=== PATIENT | female | born 1985 | race Two or more races ===

== ENCOUNTER 2018-05-06 18:24 | Emergency (ER) | payer MEDICAID, OTHER ==
[~2018-05-06] VITALS: Ht 160 cm; Wt 63.5 kg
[~2018-05-06 18:24] MED LIST: PREN1TAB81 PO
--- NOTE | 2018-05-06 18:47 | NUR ---
DR LOPEZ AT THE BEDSIDE FOR MSE.
[2018-05-06 18:54] LABS: *BILIRUBIN,URIN NEGATIVE (NEGATIVE); *BLOOD, URINE Trace-intact (NEGATIVE); *CLARITY,URINE SLIGHTLY CLOUDY (CLEAR); *COLOR,URINE YELLOW (YELLOW); *KETONES,URINE NEGATIVE (NEGATIVE); *PROTEIN,URINE NEGATIVE (NEGATIVE); *UROBILINOGEN,URINE 0.2 E.U./dl (NORMAL); LEUKOCYTE ESTERASE ,URINE TRACE (NEGATIVE); NITRITE, URINE NEGATIVE (NEGATIVE); UGLUCOSE NEGATIVE (NEGATIVE)
[2018-05-06 18:56] LABS: *URINE HCG, QUAL NEGATIVE (NEGATIVE)
[2018-05-06 18:59] LABS: BACTERIA,URINE FEW /HPF (NONE SEEN); RBC,URINE 0-3 /HPF (0-3); SQUAMOUS EPITHELIAL CELL,UR MODERATE /HPF (NONE SEEN)
[2018-05-06] MEDS ORDERED: PHENAZOPYRIDINE HCL 100 MG TABLET PO ONE (19:00)
--- NOTE | 2018-05-06 19:07 | NUR ---
Patient discharged to home in stable conditon. Written and verbal after care instructions given. Patient verbalizes understanding of instructions.
[2018-05-06 19:09] VITALS: BP 105/71
== END 2018-05-06 19:10 | disposition home or self-care (01) ==
LOC: ER 18:28
DX: N76.0 Acute vaginitis (principal)
CPT/HCPCS: 81001; 84703; 87077; 87086; 99284; A4663